=== PATIENT | male | born 1965 | race African-American/Black ===

== ENCOUNTER 2016-04-03 21:48 | Emergency (ER) | payer OTHER ==
[~2016-04-03] VITALS: Ht 172.7 cm; Wt 90.0 kg
[~2016-04-03 21:48] MED LIST: BUSPAR10 MG PO; CLARITIN 1010 MG/TAB PO; FLEXERIL5 MG PO; GLUCOTROL 5M5 MG/TAB PO; LIPITOR20 MG PO; NEURONTIN300 MG/CAP PO; NORCO 325 MG-7.1 TAB PO; ZOLOFT 100MG100 MG PO
[2016-04-03 21:49] VITALS: TEMP 98.6
[2016-04-03] MEDS ORDERED: KLONOPIN2 MG PO (21:54)
[2016-04-03 23:13] VITALS: BP 126/78; PULSE 80
== END 2016-04-03 23:14 | disposition home or self-care (01) ==
LOC: COL.ER 21:48
DX: S61.211A Laceration without foreign body of left index finger without damage to nail, initial encounter (principal); W26.0XXA Contact with knife, initial encounter; Y93.G1 Activity, food preparation and clean up; Y92.000 Kitchen of unspecified non-institutional (private) residence as the place of occurrence of the external cause; Z23 Encounter for immunization

== ENCOUNTER 2016-04-13 10:57 | Emergency (ER) | payer OTHER ==
[~2016-04-13 10:57] MED LIST changes: +KLONOPIN2 MG PO
[2016-04-13 11:00] VITALS: BP 134/95; PULSE 95; TEMP 97.8
== END 2016-04-13 11:04 | disposition home or self-care (01) ==
LOC: COL.ER 10:57
DX: Z48.02 Encounter for removal of sutures (principal)

== ENCOUNTER 2017-11-09 08:40 | Emergency (ER) | payer OTHER ==
[~2017-11-09] VITALS: Ht 172.7 cm; Wt 92.7 kg
[2017-11-09] MEDS ORDERED: CEPHALEXIN500 M1 PO (09:03)
[2017-11-09 09:55] VITALS: BP 120/75; PULSE 70; TEMP 97.7
== END 2017-11-09 09:30 | disposition home or self-care (01) ==
LOC: COL.ER 08:40
DX: S30.861A Insect bite (nonvenomous) of abdominal wall, initial encounter (principal); S20.362A Insect bite (nonvenomous) of left front wall of thorax, initial encounter; S20.361A Insect bite (nonvenomous) of right front wall of thorax, initial encounter; S30.860A Insect bite (nonvenomous) of lower back and pelvis, initial encounter; S20.462A Insect bite (nonvenomous) of left back wall of thorax, initial encounter; S20.461A Insect bite (nonvenomous) of right back wall of thorax, initial encounter; E11.9 Type 2 diabetes mellitus without complications; L08.9 Local infection of the skin and subcutaneous tissue, unspecified; E78.5 Hyperlipidemia, unspecified; W57.XXXA Bitten or stung by nonvenomous insect and other nonvenomous arthropods, initial encounter

== ENCOUNTER 2018-06-03 14:09 | Emergency (ER) | payer MEDICARE, OTHER ==
[~2018-06-03] VITALS: Ht 172.7 cm; Wt 92.7 kg
[~2018-06-03 14:09] MED LIST changes: +CEPHALEXIN500 M1 PO
[2018-06-03 14:23] VITALS: TEMP 98.2
[2018-06-03] MEDS ORDERED: VIGAMOX 0.5% 3 M3 ML OP (15:05)
[2018-06-03 15:24] VITALS: BP 126/87; PULSE 69
== END 2018-06-03 15:26 | disposition home or self-care (01) ==
LOC: COL.ER 14:09
DX: B99.9 Unspecified infectious disease (principal); H10.89 Other conjunctivitis; E11.9 Type 2 diabetes mellitus without complications; F17.210 Nicotine dependence, cigarettes, uncomplicated; Z79.84 Long term (current) use of oral hypoglycemic drugs; F43.10 Post-traumatic stress disorder, unspecified

== ENCOUNTER → 2018-12-04 | Outpatient (CLI) | payer MEDICARE, OTHER ==
[~2018-12-04] MED LIST changes: +VIGAMOX 0.5% 3 M3 ML OP
== END ==
LOC: COL.CARD 09:42
DX: R41.3 Other amnesia (principal); R55 Syncope and collapse

== ENCOUNTER 2019-01-06 10:18 | Emergency (ER) | payer MEDICARE, OTHER ==
[~2019-01-06] VITALS: Ht 172.7 cm; Wt 93.2 kg
[2019-01-06 10:22] VITALS: BP 139/81
[2019-01-06 10:37] LABS: COLLECTION METHOD CLEAN CATCH
[2019-01-06 10:53] LABS: PH 7 (5-8); SQUAMOUS EPITHELIAL 0-2 /hpf; URINE APPEARANCE Clear; URINE BACTERIA None Seen /hpf; URINE BILIRUBIN Negative (NEGATIVE); URINE BLOOD Negative (NEGATIVE); URINE COLOR Yellow; URINE GLUCOSE Negative (NEGATIVE); URINE KETONE Negative (NEGATIVE); URINE LEUKOCYTE ESTERASE Negative (NEGATIVE); URINE NITRATE Negative (NEGATIVE); URINE PROTEIN(semi-quant) Negative (NEGATIVE); URINE RBC 0-2 /hpf; URINE UROBILINOGEN Negative (NEGATIVE)
[2019-01-06 10:54] LABS: BASO % 0.7 % (0.0-2.0); EOS % 0.5 % (0-4.0); GRAN % 49.7 % (42.2-75.2); HEMATOCRIT 40.8 % (42.0-52.0); HEMOGLOBIN 13.5 g/dl (13.5-18.0); LYMPH # 2.4 (1.2-3.4); LYMPH % 39.6 % (20.0-51.0); MEAN CELL VOLUME 90 fl (80.0-100.0); MEAN CORPUSCULAR HEMOGLOBIN 30 pg (27.0-31.0); MEAN CORPUSCULAR HGB CONC 33 g/dl (33.0-37.0); MEAN PLATELET VOLUME 10.4 fl (7.4-10.4); MONO # 0.6 (0.1-0.6); MONO % 9.2 % (1.7-9.3); PLATELET COUNT 179 K/mm3 (130-400); RED BLOOD COUNT 4.53 M/mm3 (4.20-5.60); REDCELL DISTRIBUTION WIDTH-CV 14.2 % (11.5-14.5)
[2019-01-06 11:01] LABS: CALCIUM 9.2 mg/dL (8.4-10.2); CREATININE, serum 1.15 (0.66-1.25); POTASSIUM 3.8 mmol/L (3.4-5.0)
[2019-01-06 12:04] VITALS: PULSE 62; TEMP 98
== END 2019-01-06 12:04 | disposition home or self-care (01) ==
LOC: COL.ER 10:18
PROVIDERS: Emergency Medicine
DX: R31.9 Hematuria, unspecified (principal); I10 Essential (primary) hypertension; E78.5 Hyperlipidemia, unspecified

== ENCOUNTER → 2019-09-26 | Outpatient (CLI) | payer MEDICARE, OTHER | LOC: COL.RAD 09:32 | DX: M51.37 Other intervertebral disc degeneration, lumbosacral region (principal); M48.07 Spinal stenosis, lumbosacral region; M47.817 Spondylosis without myelopathy or radiculopathy, lumbosacral region ==

== ENCOUNTER 2020-05-28 10:24 | Emergency (ER) | payer MEDICARE, OTHER ==
[~2020-05-28] VITALS: Ht 172.7 cm; Wt 92.3 kg
[2020-05-28 10:28] VITALS: TEMP 98.5
[2020-05-28 11:00] LABS: BASO % 0.3 % (0.0-2.0); EOS # 0.1 (0.0-0.7); EOS % 2.1 % (0-4.0); GRAN % 59.9 % (42.2-75.2); HEMATOCRIT 43.9 % (42.0-52.0); HEMOGLOBIN 14.5 g/dl (13.5-18.0); LYMPH # 1.8 (1.2-3.4); LYMPH % 27.2 % (20.0-51.0); MEAN CELL VOLUME 91 fl (80.0-100.0); MEAN CORPUSCULAR HEMOGLOBIN 30 pg (27.0-31.0); MEAN CORPUSCULAR HGB CONC 33 g/dl (33.0-37.0); MEAN PLATELET VOLUME 11.4 fl (7.4-10.4); MONO # 0.7 (0.1-0.6); MONO % 10.2 % (1.7-9.3); PLATELET COUNT 177 K/mm3 (130-400); RED BLOOD COUNT 4.85 M/mm3 (4.20-5.60)
[2020-05-28 11:12] LABS: ALANINE AMINOTRANSFERASE 17 U/L (4-49); ALBUMIN 4.6 gm/dL (3.5-5.0); ALKALINE PHOSPHATASE 75 U/L (50-136); ANION GAP 9 mmol/L (7-16); AST,SGOT 26 U/L (15-37); BILIRUBIN,TOTAL 0.6 mg/dL (0.0-1.0); BLOOD UREA NITROGEN 20 mg/dL (9-20); C-REACTIVE PROTEIN 1.4 mg/dL (0.0-0.9); CALCIUM 9.3 mg/dL (8.4-10.2); CARBON DIOXIDE 25 mmol/L (22-30); CHLORIDE 104 mmol/L (98-107); CREATININE, serum 2.49 (0.66-1.25); GLUCOSE 130 mg/dL (74-106); POTASSIUM 3.9 mmol/L (3.4-5.0); SODIUM 138 mmol/L (137-145); TOTAL PROTEIN 8.2 gm/dL (6.4-8.2)
[2020-05-28 11:22] LABS: TROPONIN-I < 0.012 ng/mL (0.000-0.035)
[2020-05-28 12:30] VITALS: BP 115/75; PULSE 56
== END 2020-05-28 12:30 | disposition home or self-care (01) ==
LOC: COL.ER 10:24
PROVIDERS: Family Medicine
DX: E86.0 Dehydration (principal); N28.9 Disorder of kidney and ureter, unspecified; R55 Syncope and collapse; F17.210 Nicotine dependence, cigarettes, uncomplicated
CPT/HCPCS: J7030

== ENCOUNTER 2020-11-12 21:42 | Emergency (ER) | payer MEDICARE, OTHER ==
[~2020-11-12] VITALS: Ht 172.7 cm; Wt 92.7 kg
[2020-11-12 22:42] LABS: BASO % 0.3 % (0.0-2.0); EOS # 0.1 (0.0-0.7); EOS % 0.8 % (0-4.0); GRAN # 2.7 (1.4-6.5); GRAN % 41.9 % (42.2-75.2); HEMATOCRIT 43.7 % (42.0-52.0); HEMOGLOBIN 14.4 g/dl (13.5-18.0); LYMPH % 47.9 % (20.0-51.0); MEAN CELL VOLUME 90 fl (80.0-100.0); MEAN CORPUSCULAR HEMOGLOBIN 30 pg (27.0-31.0); MEAN CORPUSCULAR HGB CONC 33 g/dl (33.0-37.0); MEAN PLATELET VOLUME 11.4 fl (7.4-10.4); MONO # 0.6 (0.1-0.6); MONO % 8.9 % (1.7-9.3); PLATELET COUNT 178 K/mm3 (130-400); RED BLOOD COUNT 4.87 M/mm3 (4.20-5.60); REDCELL DISTRIBUTION WIDTH-CV 14.8 % (11.5-14.5)
[2020-11-12 22:54] LABS: ALBUMIN 4.4 gm/dL (3.5-5.0); BILIRUBIN,TOTAL 0.6 mg/dL (0.0-1.0); CALCIUM 9.1 mg/dL (8.4-10.2); CREATININE, serum 1.25 (0.66-1.25); POTASSIUM 3.5 mmol/L (3.4-5.0); TOTAL PROTEIN 7.4 gm/dL (6.4-8.2)
[2020-11-12 22:56] LABS: COLLECTION METHOD CLEAN CATCH
[2020-11-12 23:03] LABS: MUCOUS Present /lpf; PH 5 (5-8); SQUAMOUS EPITHELIAL None Seen /hpf; URINE APPEARANCE Clear; URINE BACTERIA None Seen /hpf; URINE BILIRUBIN Negative (NEGATIVE); URINE BLOOD Negative (NEGATIVE); URINE COLOR Yellow; URINE GLUCOSE Negative (NEGATIVE); URINE KETONE Negative (NEGATIVE); URINE LEUKOCYTE ESTERASE Negative (NEGATIVE); URINE NITRATE Negative (NEGATIVE); URINE PROTEIN(semi-quant) Negative (NEGATIVE); URINE RBC 0-2 /hpf
[2020-11-13] MEDS ORDERED: PERCOCET 325 MG1 TA2 PO (01:44)
[2020-11-13 02:16] VITALS: BP 107/69; PULSE 59; TEMP 97.4
== END 2020-11-13 02:51 | disposition home or self-care (01) ==
LOC: COL.ER 21:42
PROVIDERS: Personal Emergency Response Attendant
DX: S39.011A Strain of muscle, fascia and tendon of abdomen, initial encounter (principal); E11.42 Type 2 diabetes mellitus with diabetic polyneuropathy; F17.200 Nicotine dependence, unspecified, uncomplicated; X58.XXXA Exposure to other specified factors, initial encounter
CPT/HCPCS: J2270; J2405; J7030; Q9967

== ENCOUNTER → 2021-06-12 | Outpatient (CLI) | payer MEDICARE, OTHER ==
[~2021-06-12] MED LIST changes: +PERCOCET 325 MG1 TA2 PO
== END ==
LOC: COL.RAD 13:18
DX: M47.815 Spondylosis without myelopathy or radiculopathy, thoracolumbar region (principal); M47.817 Spondylosis without myelopathy or radiculopathy, lumbosacral region

== ENCOUNTER → 2021-08-05 | Outpatient (CLI) | payer MEDICARE, OTHER | LOC: COL.RAD 12:56 | DX: M47.812 Spondylosis without myelopathy or radiculopathy, cervical region (principal); M48.02 Spinal stenosis, cervical region; M50.21 Other cervical disc displacement, high cervical region; M50.31 Other cervical disc degeneration, high cervical region; R20.2 Paresthesia of skin; R20.0 Anesthesia of skin ==

== ENCOUNTER → 2023-09-09 | Outpatient (CLI) | payer MEDICARE, OTHER | LOC: COL.RAD 11:19 | DX: M43.17 Spondylolisthesis, lumbosacral region (principal); M47.26 Other spondylosis with radiculopathy, lumbar region; Z98.890 Other specified postprocedural states ==

== ENCOUNTER → 2023-09-19 | Outpatient (CLI) | payer MEDICARE, OTHER ==
[~2023-09-19] MED LIST changes: +Gadoterate 20 ML VIAL IV ONE
== END ==
LOC: COL.RAD 14:57
DX: M47.27 Other spondylosis with radiculopathy, lumbosacral region (principal); Z98.890 Other specified postprocedural states
CPT/HCPCS: A9575

== ENCOUNTER 2023-09-21 07:35 | Emergency (ER) | payer MEDICARE, OTHER ==
[~2023-09-21] VITALS: Ht 172.7 cm; Wt 95.9 kg
[~2023-09-21 07:35] MED LIST changes: -Gadoterate 20 ML VIAL IV ONE
[2023-09-21 07:47] VITALS: TEMP 98
[2023-09-21] MEDS ORDERED: Ondansetron 4 MG/2 ML VIAL IV ONE (08:00)
[2023-09-21] MEDS ORDERED: NS 1,000 ML IV ONE ×2 (08:00→10:45)
[2023-09-21] MEDS ORDERED: Ketorolac 15 MG/ML VIAL IV ONE (08:00)
[2023-09-21] MEDS ORDERED: fentaNYL 50 MCG/ML 2 ML VIAL IV PRN (08:15)
[2023-09-21 08:29] LABS: BASO % 0.4 % (0.0-2.0); EOS % 0.3 % (0.0-4.0); GRAN # 4.4 K/mm3 (1.4-6.5); GRAN % 55.8 % (42.2-75.2); HEMATOCRIT 48.5 % (42.0-52.0); HEMOGLOBIN 15.9 g/dl (13.5-18.0); LYMPH # 2.9 K/mm3 (1.2-3.4); LYMPH % 36.4 % (20.0-51.0); MEAN CELL VOLUME 90 fl (80.0-100.0); MEAN CORPUSCULAR HEMOGLOBIN 30 pg (27-31); MEAN CORPUSCULAR HGB CONC 33 g/dl (33.0-37.0); MEAN PLATELET VOLUME 11.6 fl (7.4-10.4); MONO # 0.5 K/mm3 (0.1-0.6); MONO % 6.8 % (1.7-9.3); PLATELET COUNT 200 K/mm3 (130-400); RED BLOOD COUNT 5.38 M/mm3 (4.20-5.60)
[2023-09-21 08:47] LABS: ALANINE AMINOTRANSFERASE 20 U/L (0-55); ALBUMIN 4.7 g/dL (3.4-4.8); ALKALINE PHOSPHATASE 91 U/L (40-150); ANION GAP 14 mmol/L (7-16); AST,SGOT 22 U/L (5-34); BILIRUBIN,TOTAL 0.6 mg/dL (0.2-1.2); BLOOD UREA NITROGEN 8 mg/dL (8-26); CALCIUM 10.1 mg/dL (8.4-10.2); CHLORIDE 103 mEq/L (98-107); CREATININE, serum 1.46 mg/dL (0.72-1.25); GLUCOSE 173 mg/dL (70-99); LIPASE 57 U/L (8-78); POTASSIUM 3.8 mEq/L (3.5-4.5); SODIUM 140 mEq/L (136-145); TOTAL PROTEIN 7.9 g/dl (6.2-8.1)
[2023-09-21 08:54] LABS: TROPONIN-I < 0.010 ng/mL (0.00-0.033)
[2023-09-21] MEDS ORDERED: fentaNYL 50 MCG/ML 2 ML VIAL IV ONE (09:00)
[2023-09-21] MEDS ORDERED: Iohexol 300 - 100 ML VIAL IV ONE (09:07)
[2023-09-21] MEDS ORDERED: NS 100 ML IV SCH (09:08)
[2023-09-21 10:54] LABS: COLLECTION METHOD CLEAN CATCH
[2023-09-21 11:23] LABS: PH 6.5 (5.0-8.5); URINE APPEARANCE CLEAR (CLEAR/HAZY); URINE BLOOD NEGATIVE (NEGATIVE); URINE COLOR YELLOW (YELLOW); URINE GLUCOSE NEGATIVE (NEGATIVE); URINE KETONE NEGATIVE (NEGATIVE); URINE NITRATE NEGATIVE (NEGATIVE); URINE PROTEIN(semi-quant) TRACE (NEGATIVE)
[2023-09-21] MEDS ORDERED: PERCOCET 325 MG1 TA2 PO (11:40)
[2023-09-21 12:02] VITALS: BP 143/92; PULSE 68
== END 2023-09-21 12:02 | disposition home or self-care (01) ==
LOC: COL.ER 07:35
PROVIDERS: Family Medicine
DX: M54.50 Low back pain, unspecified (principal); R91.1 Solitary pulmonary nodule
CPT/HCPCS: J0780; J1885; J2405; J3010; J7030; Q9967